=== PATIENT | female | born 1990 | race Caucasian/White ===

== ENCOUNTER 2023-07-29 20:24 | Emergency (ER) | payer SELFPAY ==
[~2023-07-29] VITALS: Ht 154.9 cm; Wt 68.0 kg
[2023-07-29 21:13] VITALS: BP 115/80; TEMP 98.2; O2SAT 99
[2023-07-29 21:15] VITALS: PULSE 106; RESP 16
== END 2023-07-29 23:43 | disposition left against medical advice (07) ==
LOC: ER 20:24
DX: J11.1 Influenza due to unidentified influenza virus with other respiratory manifestations (principal); Z53.21 Procedure and treatment not carried out due to patient leaving prior to being seen by health care provider
CPT/HCPCS: 99281